=== PATIENT | female | born 1970 | race Two or more races ===

== ENCOUNTER 2021-01-08 15:11 | Emergency (ER) | payer MEDICAID ==
[~2021-01-08] VITALS: Ht 157.5 cm; Wt 61.2 kg
--- NOTE | 2021-01-08 15:27 | NUR ---
SHAHRIARYESSENIA FROM HOME TO ER BED 3. AAOX4. NOT IN RESP DISTRESS. AMBULATORY. CAME IN FOR DIZZYNESS, FATIGUE AND LEFT ARM WEAKNESS AND TINGLING X 1 WEEK. NO NEURO DEFICIT NOTED. PT'S SON REPORTS THAT SHE HAVE BEEN TO THE HOSPITAL AND WAS DIAGNOSED WITH VERITGO AND TAKING MEDS BUT DOES NOT REMEMEBER THE NAME. MD AT BEDSIDE. AWAITING ORDERS.
[2021-01-08 15:45] LABS: BASOPHILS % (AUTO) 0.7 % (0.0-2.0); EOSINOPHILS % (AUTO) 4.1 % (0.0-6.0); HEMATOCRIT 38 % (33-45); HEMOGLOBIN 12.5 g/dL (11.5-14.8); LYMPHOCYTES # (AUTO) 1.7 /CMM (0.8-4.8); LYMPHOCYTES % (AUTO) 30.8 % (20.0-44.0); MEAN CORPUSCULAR HGB CONC 33 g/dl (31.0-36.0); MEAN CORPUSCULAR VOLUME 88 fL (82-100); MONOCYTES # (AUTO) 0.3 /CMM (0.1-1.30); MONOCYTES % (AUTO) 5.9 % (2.0-12.0); NEUTROPHILS # (AUTO) 3.3 /CMM (1.8-8.9); NEUTROPHILS % (AUTO) 58.5 % (43.0-81.0); PLATELET COUNT (AUTO) 331 /CMM (150-450); RED BLOOD CELL COUNT(AUTO) 4.29 MIL/uL (4.0-5.2); WHITE BLOOD COUNT (AUTO) 5.7 K/uL (4.3-11.0)
[2021-01-08 15:52] LABS: CALCIUM, SERUM 8.4 mg/dL (8.5-10.1); CREATININE 0.7 mg/dL (0.6-1.3)
[2021-01-08 16:08] LABS: BILIRUBIN,URINE Negative (NEGATIVE); COLOR,URINE YELLOW (YELLOW); LEUKOCYTE ESTERASE ,URINE Negative (NEGATIVE); NITRITE, URINE Negative (NEGATIVE); PH,URINE 6.5 (5.0-8.0); PROTEIN,URINE Negative (NEGATIVE); UGLUCOSE Negative (NEGATIVE); UROBILINOGEN,URINE 0.2 EU/dL (0.2)
[2021-01-08 16:16] LABS: BACTERIA,URINE Few /HPF (None Seen); RBC,URINE 0-2 /HPF (0-2); SQUAMOUS EPITHELIAL CELL,UR Few /HPF (None Seen)
--- NOTE | 2021-01-08 17:03 | NUR ---
patient resting, no distress noted.
[2021-01-08 17:43] VITALS: BP 117/69
--- NOTE | 2021-01-08 17:43 | NUR ---
PATIENT A/OX4, BREATHING EVEN AND UNLABORED, NO SOB NOTED. NEEDS ATTENDED. AMBULATORY WITH STEADY GAIT. NO DISTRESS NOTED. Patient discharged to home in stable condition. Written and verbal after care instructions given. Patient verbalizes understanding of instruction.
== END 2021-01-08 17:44 | disposition home or self-care (01) ==
LOC: ER 15:11 → EDUNIT# 15:11 → ER 17:44
DX: R51.9 Headache, unspecified (principal); R20.0 Anesthesia of skin; J45.909 Unspecified asthma, uncomplicated; Z90.49 Acquired absence of other specified parts of digestive tract
CPT/HCPCS: 36415; 70450-TC; 80048-TC; 81001; 83735-TC; 85025-TC